=== PATIENT | female | born 1950 | race Two or more races ===

== ENCOUNTER 2018-11-19 14:23 | Inpatient (IN) | payer OTHER, MEDICARE ==
--- NOTE | 2018-11-19 14:48 | PDOC ---
History of Present Illness - General History Source: Patient - History of Present Illness Initial Comments: 11/19/18 17:09 Ms. Otoole is a 68 y/o woman with hx hypothyroidism presenting to the ED after a large bloody bowel movement at home this morning. She reports that she moved her bowels while at home with no straining or pain, and noted when wiping that there was blood on the tissue. On looking at the toilet, she reports seeing that it was "full of blood". She denies any abdominal pain, fevers, chills, or previous significant rectal bleeding. She reports that her thyroid levels have been difficult to manage, and attributes several weeks of weakness and fatigue to low thyroid levels. She denies any changes in her diet, any other sick contacts at home, or having recently eaten at a restaurant or reheated food. She reports concern that she may be ill as she has not had a colonoscopy in >10 years and has a child at home that she is raising. She endorses fatigue, weakness, gross blood per rectum. She denies any fever, chills , change in weight, night sweats. PCP: Dr. Underwood Endocrine: Dr. Zambrano, Dr. Fontenot <Lencho Fiore - Last Filed: 11/21/18 12:54> <Marine Cosby - Last Filed: 11/22/18 22:24> - General Chief Complaint: Rectal Bleed Stated Complaint: BLOODY STOOL Time Seen by Provider: 11/19/18 14:48 Past History - Past Medical History COPD: No GI Disorders: Yes (Hemmeroids) Thyroid Disease: Yes - Surgical History Appendectomy: Yes - Suicide/Smoking/Psychosocial Hx Smoking History: Never smoked Have you smoked in the past 12 months: No Number of Cigarettes Smoked Daily: 10 Information on smoking cessation initiated: No Hx Alcohol Use: No Drug/Substance Use Hx: No Substance Use Type: None <Lencho Fiore - Last Filed: 11/21/18 12:54> <Marine Cosby - Last Filed: 11/22/18 22:24> - Past Medical History Allergies/Adverse Reactions: Allergies Allergy/AdvReac Type Severity Reaction Status Date / Time No Known Allergies Allergy Verified 08/18/15 14:23 Home Medications: Ambulatory Orders Methimazole 5 mg PO ASDIR 08/18/15 Metoprolol Tartrate [Lopressor -] 25 mg PO DAILY #30 tablet 08/19/15 Methimazole [Tapazole -] 10 mg PO ASDIR 11/19/18 Pantoprazole Sodium [Protonix -] 40 mg PO DAILY #30 tablet.ec 11/20/18 Review of Systems - Review of Systems Able to Perform ROS?: Yes Comments:: 11/21/18 12:10 ROS: GENERAL/CONSTITUTIONAL: No fever or chills. No weakness. HEAD, EYES, EARS, NOSE AND THROAT: No change in vision. No ear pain or discharge. No sore throat. CARDIOVASCULAR: No chest pain or shortness of breath RESPIRATORY: No cough, wheezing, or hemoptysis. GASTROINTESTINAL: No nausea, vomiting, diarrhea or constipation. GENITOURINARY: No dysuria, frequency, or change in urination. MUSCULOSKELETAL: No joint or muscle swelling or pain. No neck or back pain. SKIN: No rash NEUROLOGIC: No headache, vertigo, loss of consciousness, or change in strength/ sensation. ENDOCRINE: No increased thirst. No abnormal weight change HEMATOLOGIC/LYMPHATIC: No anemia, easy bleeding, or history of blood clots. ALLERGIC/IMMUNOLOGIC: No hives or skin allergy. <Lencho Fiore - Last Filed: 11/21/18 12:54> *Physical Exam - Vital Signs Last Vital Signs Temp Pulse Resp BP Pulse Ox 98.1 F 77 20 168/73 97 11/19/18 14:32 11/19/18 14:32 11/19/18 14:32 11/19/18 14:32 11/19/18 14:32 - Physical Exam Comments: 11/21/18 12:10 PE: GENERAL: Awake, alert, and fully oriented, in no acute distress HEAD: No signs of trauma, normocephalic, atraumatic EYES: PERRLA, EOMI, sclera anicteric, conjunctiva clear ENT: Auricles normal inspection, hearing grossly normal, nares patent, oropharynx clear without exudates. Moist mucosa NECK: Normal ROM, supple, no lymphadenopathy, JVD, or masses LUNGS: No distress, speaks full sentences, clear to auscultation bilaterally HEART: Regular rate and rhythm, normal S1 and S2, no murmurs, rubs or gallops, peripheral pulses normal and equal bilaterally. ABDOMEN: No perirectal fissures noted. Small external non-bleeding skin tags. Soft, nontender, normoactive bowel sounds. No guarding, no rebound. No masses EXTREMITIES : Normal inspection, Normal range of motion, no edema. No clubbing or cyanosis. NEUROLOGICAL: Cranial nerves II through XII grossly intact. Normal speech, normal gait, no focal sensorimotor deficits SKIN: Warm, Dry, normal turgor, no rashes or lesions noted 11/21/18 12:13 <Lencho Fiore - Last Filed: 11/21/18 12:54> - Vital Signs Last Vital Signs Temp Pulse Resp BP Pulse Ox 98.1 F 66 18 150/64 100 11/20/18 13:30 11/20/18 13:30 11/20/18 13:30 11/20/18 13:30 11/20/18 09:00 <Marine Cosby - Last Filed: 11/22/18 22:24> ED Treatment Course - LABORATORY CBC & Chemistry Diagram: 11/20/18 06:45 11/20/18 06:45 <Lencho Fiore - Last Filed: 11/21/18 12:54> - LABORATORY CBC & Chemistry Diagram: 11/20/18 06:45 11/20/18 06:45 - ADDITIONAL ORDERS Additional order review: 11/19/18 16:00 RBC 4.81 MCV 90.4 MCHC 33.7 RDW 14.4 MPV 8.6 Neutrophils % 59.6 Lymphocytes % 25.5 Monocytes % 9.5 Eosinophils % 4.4 Basophils % 1.0 - RADIOLOGY Radiology Studies Ordered: Category Date Time Status CHEST X-RAY PORTABLE* [RAD] Stat Radiology 11/19/18 15:30 Completed - Medications Given in the ED: ED Medications Discontinued Medications Generic Name Dose Route Start Last Admin Trade Name Freq PRN Reason Stop Dose Admin Dextrose 12.5 gm 11/20/18 07:04 11/20/18 08:03 D50w (Vial) - IVPUSH 11/20/18 07:05 Not Given NOW ONE Sodium Chloride 1,000 mls @ 75 mls/hr 11/19/18 20:15 11/19/18 21:19 Normal Saline - IV 75 mls/hr ASDIR GABRIELA Administration Dextrose/Sodium Chloride 1,000 mls @ 75 mls/hr 11/20/18 07:15 11/20/18 08:21 D5-Ns - IV 75 mls/hr ASDIR GABRIELA Administration Methimazole 5 mg 11/20/18 10:00 11/20/18 13:30 Tapazole - PO Not Given DAILY GABRIELA Metoprolol Tartrate 25 mg 11/19/18 22:00 11/20/18 13:34 Lopressor - PO 25 mg BID GABRIELA Administration Pantoprazole Sodium 40 mg 11/19/18 16:18 11/19/18 16:56 Protonix Iv IVPUSH 11/19/18 16:19 40 mg ONCE ONE Administration Pantoprazole Sodium 40 mg 11/20/18 10:00 11/20/18 13:34 Protonix Iv IVPUSH 40 mg DAILY GABRIELA Administration <Marine Cosby - Last Filed: 11/22/18 22:24> Medical Decision Making - Medical Decision Making 11/19/18 17:17 68 y/o F with hx hypothyroidism presenting with large value bright red blood per rectum this morning. Large volume bloody bowel movement may be attributed to fissure, hemorrhoids, diverticulosis. Chronic process such as CA possible, but less likely given acuity and volume of blood loss at once. Plan: CBC CMP TSH Rectal exam UA CXR CTA abd/pelvis Dispo: Likely admit for blood loss, weakness 11/19/18 17:21 Rectal exam - no clear external hemorrhoids, skin tags noted without bleeding or erythema. No gross blood on rectal exam, fobt sent. Plan to cancel CTA at this time given lack of ongoing gross bleeding. Plan for admission. <Lencho Fiore - Last Filed: 11/21/18 12:54> *DC/Admit/Observation/Transfer <Lencho Fiore - Last Filed: 11/21/18 12:54> - Discharge Dispostion Decision to Admit order: Yes <Marine Cosby - Last Filed: 11/22/18 22:24> Diagnosis at time of Disposition: GI bleed Qualifiers: GI bleed type/associated pathology: unspecified gastrointestinal hemorrhage type Qualified Code(s): K92.2 - Gastrointestinal hemorrhage, unspecified - Discharge Dispostion Condition at time of disposition: Stable
[2018-11-19 16:13] LABS: EOS % 4.4 % (0-4.5); HEMATOCRIT 43.5 % (32.4-45.2); HEMOGLOBIN 14.6 GM/dL (10.7-15.3); LYMPH % 25.5 % (8-40); MCH 30.4 pg (25.7-33.7); MCHC 33.7 g/dl (32.0-36.0); MEAN CELL VOLUME 90.4 fl (80-96); MEAN PLT VOLUME 8.6 fl (7.5-11.1); MONO % 9.5 % (3.8-10.2); NEUT % 59.6 % (42.8-82.8); PLATELET COUNT 238 K/MM3 (134-434); RBC 4.81 M/mm3 (3.60-5.2); RDW 14.4 % (11.6-15.6); WHITE BLOOD COUNT 4.7 K/mm3 (4.0-10.0)
[2018-11-19] MEDS ORDERED: PANTOPRAZOLE SODIUM 40 MG VIAL IVPUSH ONE (16:18)
--- NOTE | 2018-11-19 16:18 | PDOC ---
Documentation entered by Aleksey Raines SCRIBE, acting as scribe for Marine Cosby MD. Marine Cosby MD: This documentation has been prepared by the Yanna paige Xhesika, SCRIBE, under my direction and personally reviewed by me in its entirety. I confirm that the documentation accurately reflects all work, treatment, procedures, and medical decision making performed by me. Attending Attestation - Resident Resident Name: Lencho Fiore - ED Attending Attestation I have performed the following: I have examined & evaluated the patient, The case was reviewed & discussed with the resident, I agree w/resident's findings & plan - HPI HPI: 11/19/18 15:31 The patient is a 68 year old female with a significant past medical history of hypothyroidism and hemorrhoids who presents to the ED with 1 day of painless rectal bleeding with BRBPR. The patient states she went to use the bathroom, didn't strain, went to wipe herself and noticed blood on the toilet paper and large amounts of blood in the stool filling the toilet. Patient notes she endorses abdominal discomfort described as acid and has been feeling weak for a while. Pt notes she has occasional constipation but denies any in the past couple of days. Pt notes she has been eating sandwiches for a while. last colonoscopy <10 years ago, which she does not recall the results. Denies fever, chills, chest pain, SOB, palpitations, dizziness, N, V, D, bladder problems, leg swelling, No sick contacts or travel. No new changes in medications. no AC or ASA use. Allergies: NKDA Surgical history: Appendectomy Meds: as documented in EMR PMD Dr Leung 11/19/18 16:16 - Physicial Exam PE: 11/19/18 15:33 Agree with the resident's HPI and PE as documented in the electronic medical record. NAD, well appearing, EOMI, PERRL, MMM, nl conjunctiva, anicteric; neck supple. lungs clear, RRR, abdomen soft nontender. Back nontender. BARBOUR x4, no focal neuro deficits. No peripheral edema. normal color for ethnicity, WWP. - Medical Decision Making 11/19/18 16:18 See HPI for details. Prior notes reviewed, including admissions, discharges and consultations. Vital signs reviewed, wnl. normotensive, no tachycardia. DDX GIB: UGIB vs LGIB, diverticular bleed, AVM, polyp, brisk UGIB, PUD/duodenal ulcer, anemia, electrolyte/metabolic derangements, ischemic colitis, hemorrhagic colitis laboratory results and imaging reviewed, basic labs and lytes wnl, H/H wnl, LFTs wnl txs sent. EKG ED course -interventions: protonix x1 for ppx, NPO, IVF. no acute bleeding, controlled since ED visit. no abdominal pain, benign, no peritoneal findings Admit for GIB workup, likely lower GIB. Discussed results and management plan with pt agree with impression, treatment indications, recommendations and plan. inpatient GI cs 11/19/18 16:19 11/20/18 10:26
[2018-11-19 16:46] LABS: ALBUMIN 3.8 g/dl (3.4-5.0); BILIRUBIN,TOTAL 0.3 mg/dL (0.2-1); BLOOD UREA NITROGEN 23.8 mg/dL (7-18); CALCIUM 8.9 mg/dL (8.5-10.1); POTASSIUM 4.3 mmol/L (3.5-5.1); TOT PROT 7.6 g/dl (6.4-8.2)
[2018-11-19] MEDS ORDERED: PANTOPRAZOLE SODIUM 40 MG/100 ML BAG IVPB ONE (16:50)
--- NOTE | 2018-11-19 17:35 | EKG ---
Test Reason : Blood Pressure : / mmHG Vent. Rate : 074 BPM Atrial Rate : 074 BPM P-R Int : 150 ms QRS Dur : 064 ms QT Int : 402 ms P-R-T Axes : 067 034 060 degrees QTc Int : 446 ms POOR DATA QUALITY, INTERPRETATION MAY BE ADVERSELY AFFECTED SINUS RHYTHM WITH MARKED SINUS ARRHYTHMIA OTHERWISE NORMAL ECG WHEN COMPARED WITH ECG OF 19-AUG-2015 13:57, T WAVE AMPLITUDE HAS DECREASED IN LATERAL LEADS Confirmed by CONNIE WOLFE MD ([id number]) on 11/19/2018 5:35:22 PM Referred By: Confirmed By:CONNIE WOLFE MD
--- NOTE | 2018-11-19 19:53 | HP ---
CHIEF COMPLAINT: bloody BM PCP:Madhu HISTORY OF PRESENT ILLNESS: 68 year old woman c/o large bloody, painless BM today around 1pm, did not syncopize, cannot specify exactly how much blood. Could not specify if bright or dark. Denied nausea or vomiting. Denied any abdominal pain. denied NSAID use apart from occasional ASA. ER course was notable for: (1) abd/pelvis ct (2) cxr (3) Recent Travel: no PAST MEDICAL HISTORY: hyperthyroidism PAST SURGICAL HISTORY: Appendectomy, c section, b/, hysterectomy Social History: Smoking: quit 1 month ago, smoked "as long as I could remember" Alcohol:no Drugs: no Family History: sister with unspecified malignancy Allergies No Known Allergies Allergy (Verified 08/18/15 14:23) HOME MEDICATIONS: Home Medications Medication Instructions Recorded Methimazole 5 mg PO ASDIR 08/18/15 Aspirin Coated [Ecotrin -] 81 mg PO DAILY tablet.ec 08/19/15 Metoprolol Tartrate [Lopressor -] 25 mg PO DAILY #30 tablet 08/19/15 Methimazole [Tapazole -] 10 mg PO ASDIR 11/19/18 REVIEW OF SYSTEMS CONSTITUTIONAL: Absent: fever, chills, diaphoresis, generalized weakness, malaise, loss of appetite, weight change HEENT: Absent: rhinorrhea, nasal congestion, throat pain, throat swelling, difficulty swallowing, mouth swelling, ear pain, eye pain, visual changes CARDIOVASCULAR: Absent: chest pain, syncope, palpitations, irregular heart rate, lightheadedness , peripheral edema RESPIRATORY: Absent: cough, shortness of breath, dyspnea with exertion, orthopnea, wheezing, stridor, hemoptysis GASTROINTESTINAL: Absent: abdominal pain, abdominal distension, nausea, vomiting, diarrhea, constipation, melena, present- hematochezia GENITOURINARY: Absent: dysuria, frequency, urgency, hesitancy, hematuria, flank pain, genital pain MUSCULOSKELETAL: Absent: myalgia, arthralgia, joint swelling, back pain, neck pain SKIN: Absent: rash, itching, pallor HEMATOLOGIC/IMMUNOLOGIC: Absent: easy bleeding, easy bruising, lymphadenopathy, frequent infections ENDOCRINE: Absent: unexplained weight gain, unexplained weight loss, heat intolerance, cold intolerance NEUROLOGIC: Absent: headache, focal weakness or paresthesias, dizziness, unsteady gait, seizure, mental status changes, bladder or bowel incontinence PSYCHIATRIC: Absent: anxiety, depression, suicidal or homicidal ideation, hallucinations. PHYSICAL EXAMINATION Vital Signs - 24 hr 11/19/18 14:32 Temperature 98.1 F Pulse Rate 77 Respiratory 20 Rate Blood Pressure 168/73 O2 Sat by Pulse 97 Oximetry (%) GENERAL: Awake, alert, and fully oriented, in no acute distress. HEAD: Normal with no signs of trauma. EYES: Pupils equal, round and reactive to light, extraocular movements intact, sclera anicteric, conjunctiva clear. No lid lag. EARS, NOSE, THROAT: Ears normal, nares patent, oropharynx clear without exudates. Moist mucous membranes. NECK: Normal range of motion, supple without lymphadenopathy, JVD, or masses. LUNGS: Breath sounds equal, clear to auscultation bilaterally. No wheezes, and no crackles. No accessory muscle use. HEART: Regular rate and rhythm, normal S1 and S2 without murmur, rub or gallop. ABDOMEN: Soft, nontender, not distended, normoactive bowel sounds, no guarding, no rebound, no masses. MUSCULOSKELETAL: Normal range of motion at all joints. No bony deformities or tenderness. No CVA tenderness. UPPER EXTREMITIES: 2+ pulses, warm, well-perfused. No cyanosis. No clubbing. No peripheral edema. LOWER EXTREMITIES: 2+ pulses, warm, well-perfused. No calf tenderness. No peripheral edema. NEUROLOGICAL: Cranial nerves II-XII intact. Normal speech. Normal gait. PSYCHIATRIC: Cooperative. Good eye contact. Appropriate mood and affect. SKIN: Warm, dry, normal turgor, no rashes or lesions noted, normal capillary refill. Rectal exam - no clear external hemorrhoids, skin tags noted without bleeding or erythema. No gross blood on rectal exam Laboratory Results - last 24 hr 11/19/18 11/19/18 11/19/18 16:00 16:00 16:00 WBC 4.7 RBC 4.81 Hgb 14.6 Hct 43.5 MCV 90.4 MCH 30.4 MCHC 33.7 RDW 14.4 Plt Count 238 D MPV 8.6 Absolute Neuts (auto) 2.8 Neutrophils % 59.6 Lymphocytes % 25.5 Monocytes % 9.5 Eosinophils % 4.4 Basophils % 1.0 Nucleated RBC % 0 Sodium 144 Potassium 4.3 Chloride 108 H Carbon Dioxide 29 Anion Gap 6 L BUN 23.8 H Creatinine 1.0 Est GFR (CKD-EPI)AfAm 66.57 Est GFR (CKD-EPI)NonAf 57.44 Random Glucose 95 Calcium 8.9 Total Bilirubin 0.3 AST 12 L ALT 17 Alkaline Phosphatase 82 Total Protein 7.6 Albumin 3.8 TSH 0.15 L Stool Occult Blood Blood Type O POSITIVE Antibody Screen Negative 11/19/18 11/19/18 16:00 16:00 WBC RBC Hgb Hct MCV MCH MCHC RDW Plt Count MPV Absolute Neuts (auto) Neutrophils % Lymphocytes % Monocytes % Eosinophils % Basophils % Nucleated RBC % Sodium Potassium Chloride Carbon Dioxide Anion Gap BUN Creatinine Est GFR (CKD-EPI)AfAm Est GFR (CKD-EPI)NonAf Random Glucose Calcium Total Bilirubin AST ALT Alkaline Phosphatase Total Protein Albumin TSH Cancelled Stool Occult Blood Positive Blood Type Antibody Screen EKG normal sinus rhythm, no interval abnormalities, narrow QRS, ST and T wave segments and morphology normal. Nonspecific T wave abnormalities ASSESSMENT/PLAN: #Bloody BM - likely bleeding from GI tract. Hemodynamically stable, CBC was wnl. DD includes diverticulosis, AVM, hemorrhoids, colon cancer. -stable for admission to med/surg -NPO -monitor cbc q6hrs -monitor VS q4hrs -GI consult for possible colonsocopy -avoid nsaids or heparin -abd/pelvis ct performed - report to be followed up -IV fluid hydration #Hyperthyroidism - uncontrolled, low TSH -send free, total t4 -t3 -home dose -methimazole 5mg po q2days - dr ferrara consult DVT ppx - scds Visit type - Emergency Visit Emergency Visit: Yes ED Registration Date: 11/19/18 Care time: The patient presented to the Emergency Department on the above date and was hospitalized for further evaluation of their emergent condition. - New Patient This patient is new to me today: Yes Date on this admission: 11/19/18 - Critical Care Critical Care patient: No
[2018-11-19] MEDS ORDERED: SODIUM CHLORIDE 1,000 ML IV SCH (20:15)
[2018-11-19 21:24] LABS: INR 0.99 (0.83-1.09); PROTHROMBIN TIME (PATIENT) 11.7 SEC (9.7-13.0)
[2018-11-19 21:26] LABS: ACTIVATED PTT 36.3 SECONDS (25.2-36.5)
[2018-11-19] MEDS: METOPROLOL TARTRATE 25 MG TABLET (FP) PO SCH (23:39)
[2018-11-20 02:06] LABS: EOS % 4.7 % (0-4.5); WHITE BLOOD COUNT 4.4 K/mm3 (4.0-10.0)
[2018-11-20 02:10] LABS: BASO % 2.3 % (0-2.0); HEMATOCRIT 39.7 % (32.4-45.2); HEMOGLOBIN 13.6 GM/dL (10.7-15.3); LYMPH % 39.1 % (8-40); MCH 31.1 pg (25.7-33.7); MCHC 34.2 g/dl (32.0-36.0); MEAN PLT VOLUME 8.4 fl (7.5-11.1); MONO % 9.9 % (3.8-10.2); PLATELET COUNT 189 K/MM3 (134-434); RBC 4.36 M/mm3 (3.60-5.2); RDW 14.1 % (11.6-15.6)
[2018-11-20 04:35] VITALS: BMI 31.9
[2018-11-20] MEDS ORDERED: DEXTROSE 50%-WATER - 25 GM/50 ML VIAL IVPUSH ONE (07:04)
[2018-11-20] MEDS ORDERED: DEXTROSE 5%-NORMAL SALINE 1,000 ML IV SCH (07:15)
--- NOTE | 2018-11-20 07:46 | CON.GI ---
Consult Consult Specialty:: GI Referred by:: Dr. Mir Reason for Consultation:: GI bleed - History of Present Illness History of Present Illness: Patient is a 68 y/o female that presented to ER after experiencing rectal bleeding. Patient states that around 1pm yesterday she noticed blood when she used the bathroom. Patient unable to say if stool was present or how much blood was passed. She denies blood clots, abdominal pain, nausea or vomiting when this happened. Patient does take a baby aspirin and Anacin for pain. She states her last colonoscopy was 12-13 yrs ago, she does not remember the MD name who performed it but states that it was "normal". She states that she has also been experiencing dysphagia with loss of appetite and acid reflux. Denies previous experiences of rectal bleeding, blood in stool, melena. Denies abnormal weight loss. Labs show Hg 13.6 and was noted with positive Stool OB. Abdominal/Pelvic CT scan done with results pending. - History Source History Provided By: Patient Limitations to Obtaining History: No Limitations - Past Medical History Cardio/Vascular: Yes: Hyperlipdemia. No: CAD, CHF ...: No Endocrine: Yes: Hyperthyroidism - Past Surgical History Past Surgical History: Yes: Appendectomy, , Hysterectomy - Alcohol/Substance Use Hx Alcohol Use: No - Smoking History Smoking history: Former smoker Have you smoked in the past 12 months: No Aproximately how many cigarettes per day: 10 - Social History ADL: Independent History of Recent Travel: No Home Medications - Allergies Allergies/Adverse Reactions: Allergies Allergy/AdvReac Type Severity Reaction Status Date / Time No Known Allergies Allergy Verified 08/18/15 14:23 - Home Medications Home Medications: Ambulatory Orders Methimazole 5 mg PO ASDIR 08/18/15 Aspirin Coated [Ecotrin -] 81 mg PO DAILY tablet.ec 08/19/15 Metoprolol Tartrate [Lopressor -] 25 mg PO DAILY #30 tablet 08/19/15 Methimazole [Tapazole -] 10 mg PO ASDIR 11/19/18 Family Disease History - Family Disease History Family Disease History: Heart Disease: Mother ( from "heart attack" at age 86) Review of Systems - Review of Systems Constitutional: reports: Loss of Appetite Eyes: reports: No Symptoms HENT: reports: Difficult Swallowing Neck: reports: No Symptoms Cardiovascular: reports: No Symptoms Respiratory: reports: SOB Gastrointestinal: reports: Constipation, Dysphagia, Rectal Bleeding Genitourinary: reports: No Symptoms Breasts: reports: No Symptoms Reported Musculoskeletal: reports: No Symptoms Integumentary: reports: No Symptoms Neurological: reports: No Symptoms Endocrine: reports: No Symptoms Hematology/Lymphatic: reports: No Symptoms Psychiatric: reports: No Symptoms Physical Exam-GI Vital Signs: Vital Signs Temperature 97.8 F 11/20/18 02:22 Pulse Rate 59 L 11/20/18 02:22 Respiratory Rate 18 11/20/18 02:22 Blood Pressure 119/44 L 11/20/18 02:22 O2 Sat by Pulse Oximetry (%) 98 11/19/18 22:00 Constitutional: Yes: No Distress, Calm Eyes: Yes: Conjunctiva Clear HENT: Yes: Atraumatic Cardiovascular: Yes: Regular Rate and Rhythm Respiratory: Yes: Regular, CTA Bilaterally Gastrointestinal Inspection: Yes: WNL. No: Ascites, Distention, Hernia, Scars, Other ...Auscultate: Yes: Normoactive Bowel Sounds. No: Hyperactive Bowel Sounds, Hypoactive Bowel Sounds, No Bowel Sounds, Other ...Palpate: Yes: Soft. No: Firm/Rigid, Guarding, Hepatomegaly, Mass, Pulsatile Mass, Splenomegaly, Tenderness, Tenderness, Epigastium, Tenderness, Rebound, Other ...Percussion: Yes: Tympanitic. No: Dullness, Fluid Wave, Other ...Rectal Exam: Yes: Sphincter Tone Normal, Other (no blood noted) Neurological: Yes: Alert, Oriented Psychiatric: Yes: Alert, Oriented Labs: INR, PTT INR 0.99 (0.83-1.09) 11/19/18 21:00 Active Medications Generic Name Dose Route Start Last Admin Trade Name Freq PRN Reason Stop Dose Admin Dextrose/Sodium Chloride 1,000 mls @ 75 mls/hr 11/20/18 07:15 D5-Ns - IV ASDIR GABRIELA Methimazole 5 mg 11/20/18 10:00 Tapazole - PO DAILY GABRIELA Metoprolol Tartrate 25 mg 11/19/18 22:00 11/19/18 23:39 Lopressor - PO Not Given BID GABRIELA Pantoprazole Sodium 40 mg 11/20/18 10:00 Protonix Iv IVPUSH DAILY GABRIELA Imaging - Results Cat Scan: Pending Problem List - Problems (1) Rectal bleeding Assessment/Plan: >Stool OB positive >Hg stable at 12.8 >monitor Hg daily >instructed to follow up as outpatient for colonoscopy and further GI workup Code(s): K62.5 - HEMORRHAGE OF ANUS AND RECTUM (2) GI bleed Assessment/Plan: >continue Pantoprazole >clear liquid diet >IV hydration Code(s): K92.2 - GASTROINTESTINAL HEMORRHAGE, UNSPECIFIED
[2018-11-20 07:53] LABS: HEMATOCRIT 37.4 % (32.4-45.2); HEMOGLOBIN 12.8 GM/dL (10.7-15.3); MCH 30.8 pg (25.7-33.7); MCHC 34.3 g/dl (32.0-36.0); MEAN CELL VOLUME 89.8 fl (80-96); MEAN PLT VOLUME 8.6 fl (7.5-11.1); PLATELET COUNT 192 K/MM3 (134-434); RBC 4.17 M/mm3 (3.60-5.2); RDW 14.4 % (11.6-15.6); WHITE BLOOD COUNT 3.8 K/mm3 (4.0-10.0)
[2018-11-20 08:09] LABS: BLOOD UREA NITROGEN 18.2 mg/dL (7-18); CALCIUM 8.3 mg/dL (8.5-10.1); CREATININE 0.7 mg/dL (0.55-1.3); POTASSIUM 3.8 mmol/L (3.5-5.1)
--- NOTE | 2018-11-20 08:19 | PN ---
Progress Note, Physician - Current Medication List Current Medications: Active Medications Dextrose/Sodium Chloride (D5-Ns -) 1,000 mls @ 75 mls/hr IV ASDIR GABRIELA Methimazole (Tapazole -) 5 mg PO DAILY GABRIELA Metoprolol Tartrate (Lopressor -) 25 mg PO BID GABRIELA Last Admin: 11/19/18 23:39 Dose: Not Given Pantoprazole Sodium (Protonix Iv) 40 mg IVPUSH DAILY GABRIELA - Objective Vital Signs: Vital Signs Temperature 97.9 F 11/20/18 06:00 Pulse Rate 66 11/20/18 06:00 Respiratory Rate 18 11/20/18 06:00 Blood Pressure 134/58 L 11/20/18 06:00 O2 Sat by Pulse Oximetry (%) 98 11/19/18 22:00 Cardiovascular: Yes: Regular Rate and Rhythm Respiratory: Yes: Regular, CTA Bilaterally Gastrointestinal: Yes: Normal Bowel Sounds, Soft. No: Tenderness Labs: CBC, BMP 11/20/18 06:45 INR, PTT INR 0.99 (0.83-1.09) 11/19/18 21:00 Problem List - Problems (1) GI bleed Assessment/Plan: -NPO -Hgb stable -monitor cbc -monitor VS q4hrs -GI consult for possible colonsocopy -avoid nsaids or heparin -abd/pelvis ct performed - no acute path--compression FX -IV fluid hydration Code(s): K92.2 - GASTROINTESTINAL HEMORRHAGE, UNSPECIFIED (2) Hyperthyroidism Assessment/Plan: endo on case chronic Code(s): E05.90 - THYROTOXICOSIS, UNSP WITHOUT THYROTOXIC CRISIS OR STORM
[2018-11-20] MEDS ORDERED: METHIMAZOLE 5 MG TABLET (FP) PO SCH (10:00)
[2018-11-20] MEDS ORDERED: PANTOPRAZOLE SODIUM 40 MG VIAL IVPUSH SCH (10:00)
[2018-11-20] MEDS ORDERED: PT OWN MED DRAWER 7, Y5N ONE (13:22)
[2018-11-20] MEDS: METOPROLOL TARTRATE 25 MG TABLET (FP) PO SCH (13:34)
--- NOTE | 2018-11-20 13:58 | DS ---
Physical Examination Vital Signs: Vital Signs Temperature 97.7 F 11/20/18 09:51 Pulse Rate 69 11/20/18 09:51 Respiratory Rate 15 11/20/18 09:51 Blood Pressure 150/72 11/20/18 09:51 O2 Sat by Pulse Oximetry (%) 98 11/19/18 22:00 Labs: CBC, BMP 11/20/18 06:45 11/20/18 06:45 Discharge Summary Reason For Visit: GASTROINTESTINAL HEMORRHAGE Current Active Problems GI bleed (Acute) Rectal bleeding (Acute) Condition: Stable - Instructions Referrals: Roman Marinelli MD [Staff Physician] - Shira Leung MD [Primary Care Provider] - 1 Week Disposition: HOME - Home Medications Comprehensive Discharge Medication List: Ambulatory Orders Methimazole 5 mg PO ASDIR 08/18/15 Metoprolol Tartrate [Lopressor -] 25 mg PO DAILY #30 tablet 08/19/15 Methimazole [Tapazole -] 10 mg PO ASDIR 11/19/18 Pantoprazole Sodium [Protonix -] 40 mg PO DAILY #30 tablet.ec 11/20/18
[2018-11-20 15:46] VITALS: BP 150/64; PULSE 66; TEMP 98.1
== END 2018-11-20 14:58 | disposition home or self-care (01) | DRG 379 ==
LOC: JER 14:23 → JERBED 18:16 → J5S 21:56
PROVIDERS: ADMIT Internal Medicine; ATTEND Family Medicine
DX: K92.2 Gastrointestinal hemorrhage, unspecified (principal); E05.90 Thyrotoxicosis, unspecified without thyrotoxic crisis or storm; E78.5 Hyperlipidemia, unspecified; K64.9 Unspecified hemorrhoids; Z87.891 Personal history of nicotine dependence
CPT/HCPCS: 36415; 71045-TC-FY; 74176-TC; 80048; 80053; 82272; 82962; 84436; 84439; 84443; 84481; 85025; 85027; 85610; 85730; 86850; 86900; 86901; 93005; 93010; 99285-25; J7030

== ENCOUNTER 2023-12-10 14:54 | Emergency (ER) | payer OTHER ==
[2023-12-10 15:00] VITALS: RESP 16; TEMP 97.9; BMI 33.1
[2023-12-10] MEDS ORDERED: ACETAMINOPHEN 325 MG TABLET (FP) ONE (16:11)
[2023-12-10] MEDS: ACETAMINOPHEN 500 MG TABLET (FP) PO ONE (16:19)
[2023-12-10] MEDS: LACTATED RINGERS SOLUTION 1000 ML INFUS.BAG IV ONE (16:19)
[2023-12-10 16:21] LABS: EOS % 5.7 % (0-4.5); HEMATOCRIT 44.1 % (32.4-45.2); HEMOGLOBIN 15.1 GM/dL (10.7-15.3); LYMPH % 22.7 % (8-40); MCH 31.2 pg (25.7-33.7); MCHC 34.1 g/dl (32.0-36.0); MEAN CELL VOLUME 91.6 fl (80-96); MEAN PLT VOLUME 7.8 fl (7.5-11.1); MONO % 7.2 % (3.8-10.2); NEUT % 63.4 % (42.8-82.8); PLATELET COUNT 256 10^3/uL (134-434); RBC 4.82 M/mm3 (3.60-5.2); RDW 13.3 % (11.6-15.6); WHITE BLOOD COUNT 6.6 K/mm3 (4.0-10.0)
[2023-12-10 16:28] LABS: INR 0.95 (0.83-1.09); PROTHROMBIN TIME (PATIENT) 10.8 SEC (9.7-13.0)
[2023-12-10 16:31] LABS: ACTIVATED PTT 35.2 SECONDS (25.2-36.5)
[2023-12-10 16:37] LABS: POTASSIUM 4.5 mmol/L (3.5-5.1)
[2023-12-10 16:40] LABS: ALBUMIN 3.9 g/dl (3.4-5.0); CALCIUM 8.8 mg/dL (8.5-10.1); MAGNESIUM 2.1 mg/dL (1.8-2.4)
[2023-12-10 16:42] LABS: PHOSPHOROUS 3.6 mg/dL (2.5-4.9)
[2023-12-10 16:43] LABS: CREATININE 0.7 mg/dL (0.55-1.3)
[2023-12-10 16:44] LABS: BILIRUBIN,TOTAL 0.4 mg/dL (0.2-1); TOT PROT 7.8 g/dl (6.4-8.2)
[2023-12-10 16:48] LABS: N-TERMINAL BNP 641.5 pg/ml (5-125)
[2023-12-10 17:16] LABS: URINE APPEARANCE CLEAR; URINE BILIRUBIN NEGATIVE (NEGATIVE); URINE COLOR YELLOW; URINE GLUCOSE (UA) NEGATIVE (NEGATIVE); URINE KETONE NEGATIVE (NEGATIVE); URINE LEUK ESTERASE NEGATIVE (NEGATIVE); URINE NITRITE NEGATIVE (NEGATIVE); URINE PROTEIN NEGATIVE (NEGATIVE); URINE UROBILINOGEN 0.2 mg/dL (0.2-1.0)
[2023-12-10] MEDS ORDERED: amLODIPine BESYLATE 10 MG TABLET (FP) ONE (18:06)
[2023-12-10] MEDS: amLODIPine BESYLATE 10 MG TABLET (FP) PO ONE (18:16)
[2023-12-10 18:42] VITALS: BP 148/88; PULSE 72
== END 2023-12-10 19:11 | disposition home or self-care (01) ==
LOC: JER 14:54
DX: U07.1 COVID-19 (principal); I10 Essential (primary) hypertension; R05.9 Cough, unspecified; R53.81 Other malaise; R09.81 Nasal congestion; R53.1 Weakness; R42 Dizziness and giddiness; R06.02 Shortness of breath; R07.2 Precordial pain
CPT/HCPCS: 0241U-QW; 36415; 71045-TC-FY; 80053; 81003; 83735; 83880; 84100; 84443; 84484; 85025; 85610; 85730; 86850; 86900; 86901; 87086; 93005; 93010; 99285-25

== ENCOUNTER 2024-04-26 10:40 | Emergency (ER) | payer OTHER ==
[2024-04-26 11:11] VITALS: BP 153/73; PULSE 77; RESP 18; TEMP 98.3; BMI 32.5
[2024-04-26 12:10] LABS: BASO % 0.9 % (0-2.0); EOS % 4.4 % (0-4.5); HEMATOCRIT 41.5 % (32.4-45.2); HEMOGLOBIN 14.1 GM/dL (10.7-15.3); LYMPH % 20.1 % (8-40); MCH 31.2 pg (25.7-33.7); MEAN CELL VOLUME 91.7 fl (80-96); MEAN PLT VOLUME 7.3 fl (7.5-11.1); MONO % 8.5 % (3.8-10.2); NEUT % 66.1 % (42.8-82.8); PLATELET COUNT 290 10^3/uL (134-434); RBC 4.53 M/mm3 (3.60-5.2); RDW 12.8 % (11.6-15.6); WHITE BLOOD COUNT 5.3 K/mm3 (4.0-10.0)
[2024-04-26 12:18] LABS: INR 0.98 (0.83-1.09); PROTHROMBIN TIME (PATIENT) 11.3 SEC (9.7-13.0)
[2024-04-26 12:20] LABS: ACTIVATED PTT 33.2 SECONDS (25.2-36.5)
[2024-04-26 12:31] LABS: POTASSIUM 4.5 mmol/L (3.5-5.1)
[2024-04-26 12:33] LABS: ALBUMIN 3.6 g/dl (3.4-5.0); BLOOD UREA NITROGEN 12.6 mg/dL (7-18); CALCIUM 8.9 mg/dL (8.5-10.1)
[2024-04-26 12:37] LABS: CREATININE 0.6 mg/dL (0.55-1.3)
[2024-04-26 12:38] LABS: BILIRUBIN,TOTAL 0.6 mg/dL (0.2-1)
[2024-04-26 13:27] LABS: HIV INTERPRETATION NEGATIVE (NEGATIVE)
== END 2024-04-26 13:57 | disposition home or self-care (01) ==
LOC: JER 10:40
DX: S52.591A Other fractures of lower end of right radius, initial encounter for closed fracture (principal); W00.0XXA Fall on same level due to ice and snow, initial encounter
CPT/HCPCS: 36415; 73090-TC-RT-FY; 73110-TC-RT-FY; 73130-TC-RT-FY; 80053; 85025; 85610; 85730; 86803; 86850; 86900; 86901; 87389; 93005; 93010; 99285-25